=== PATIENT | female | born 1950 | race African-American/Black ===

== ENCOUNTER 2016-11-10 11:35 | Inpatient (IN) | payer OTHER ==
[~2016-11-10] VITALS: Ht 165.1 cm; Wt 156.1 kg
--- NOTE | ~2016-11-10 | HC ---
[facility] [place] [address] CONSULTATION Name: HERNESTO SOLIZ Room #: 219-P ADM IN M.R.#: [id number] Admission: 11/10/16 Attend Phys: Rhona Botello MD Discharge: Date of : 48 Report #: [id number] THIS REPORT FOR: //name// CC: Elias Botello CARDIOLOGY CONSULTATION HISTORY OF PRESENT ILLNESS: The patient is a 66-year-old -[place] female with a long-standing history of obesity and coronary artery disease. I have known the patient for a number of years. She has had some recurrent heart failure issues over the last couple of years, but has been fairly stable recently. She has a history of bypass surgery in approximately 1999. Long-standing hypertension, diabetes, heart failure and morbid obesity. She is still at home with some assistance from the family. Minimal ambulation. She has some dizziness and lightheadedness, which have been kind of chronic. Sometimes, she will have some visual changes. She does note for 3- or 4-week history of slowly increasing weight and edema, relatively mild. She saw Dr. Keita of Nephrology last week, who obtained laboratory work and she states, he increased her Demadex to 40 mg 3 times a day. MEDICATIONS: She also takes carvedilol 25 b.i.d., warfarin, losartan 100, rosuvastatin 40, hydralazine 25 t.i.d., NovoLog, trazodone at night and Lyrica 50 b.i.d. LABORATORY DATA: The laboratory work reveals ikjng-bp-lzjasrf worsening of her renal failure. Potassium was 4.7 and creatinine was 3.1, her baseline has been in the mid ones, I believe, 1.5 to 2.0. Troponin is negative. BNP was 708. H and H 7.6 and 24.4; this is definitely worsened anemia. White count is 7000 and platelets 166,000. U/A was positive for nitrite, some white cells, not clear if this is probably urine; urine culture is pending. CT of the head has no acute process. CT of the chest, mild vascular congestion, some perihilar infiltrates and right hilar appears to be clearing. FAMILY HISTORY: Positive for mother had an infarct around the age 60 and had a pacemaker. SOCIAL HISTORY: She was a prior smoker years ago. No alcohol. She is single. She does have children, who are involved in her care. There was a daughter and granddaughter with her today. ALLERGIES: No known drug allergies. REVIEW OF SYSTEMS: Essentially negative, except for stated above, fatigue and shortness of breath, so this has been noted. PHYSICAL EXAMINATION: [facility] [address] [place] [address] CONSULTATION Name: HERNESTO SOLIZ Room #: 219-P ADM IN M.R.#: [id number] Admission: 11/10/16 Attend Phys: Rhona Botello MD Discharge: Date of : 48 Report #: [id number] GENERAL: She is in no distress and frankly not qualifying for oxygen right now. VITAL SIGNS: Blood pressure 150/54 and pulse 70. HEENT: Eyes reveal xanthelasmas. Pharynx is clear. NECK: Shows preserved upstrokes, without JVD or bruits. LUNGS: Clear anteriorly. They are diminished in the bases. CARDIAC EXAMINATION: Distant S1, S2, without significant murmur or gallop. ABDOMEN: Soft, obese and nontender. EXTREMITIES: Reveal 1+ edema. She is tender. I cannot palpate the distal pulses. NEUROLOGIC: Nonfocal. SKIN: Warm and dry, without xanthoma or ulcer. MUSCULOSKELETAL: Valgus deformity of the knees, general arthritic changes. I did not ambulate her. ASSESSMENT: 1. Progressive dyspnea, shortness of breath and nwanw-br-absamsr heart failure. This would be more the diastolic component with history of left ventricular hypertrophy. 2. Hypertension. 3. Diabetes. 4. Hypercholesterolemia. 5. Possible infiltrative infectious etiology here. 6. Morbid obesity. 7. Seceb-pz-npobvyn renal insufficiency with marked worsening of the renal function. RECOMMENDATIONS AND PLAN: I would hold her ARB right now, atorvastatin and would continue carvedilol. Antibiotics have been initiated. It is not clear to me, we may have even pushed her toward the dry side, although her weight is up. Nephrology has been following her more recent. I will ask them to see her in the morning. We will repeat her echo Doppler, although I do not expect significant change. There was LVH with diastolic dysfunction and some valvular insufficiency a year ago. Daily weights, some relative fluid and sodium restriction and holding on the ARB currently. We will utilize hydralazine for blood pressure and carvedilol. Continue with anticoagulation. We will follow with you. Thank you for asking us to assist in the care of this patient. <ELECTRONICALLY SIGNED> By: Nikita Webb MD, FACC 11/11/16 1646 [id number] Nikita Webb MD, FACC /nt
--- NOTE | ~2016-11-10 | EKG ---
[place] [address] 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 : 1950 Requested By: Lashonda Kruger Order Number: [id number] MD: Juan aMrtinez Measurements Intervals [place] Rate: 65 P: 10 [place]: 127 QRS: 8 QRSD: 165 T: 34 QT: 437 QTc: 455 Interpretive Statements Sinus rhythm Right bundle branch block Compared to ECG 04/11/2016 06:45:43 Ventricular premature complex(es) no longer present Electronically Signed On 11-11-2016 8:35:50 CDT by Juan Martinez [email or web address] <ELECTRONICALLY SIGNED> By: Juan Martinez MD, [facility] 11/11/16 0835 1215 121 Juan Martinez MD, [facility] /EPI
--- NOTE | ~2016-11-10 | 2DMMODE ---
[facility] [place] [place] [address] [place] [address] 2 D/M-MODE ECHOCARDIOGRAM Name: HERNESTO SOLIZ Room #: 219-P ADM IN M.R.#: [id number] Admission: 11/10/16 Attend Phys: Rhona Botello MD Discharge: Date of : 48 Date of Service: 11/11/16 1155 Report #: [id number] THIS REPORT FOR: //name// APPROVED REPORT Study performed: 11/11/2016 11:11:13 EXAM: Comprehensive 2D, Doppler, and color-flow Echocardiogram Patient Location: Bedside Room #: 219 Status: routine BSA: 2.49 HR: 68 bpm BP: 148/51 mmHg Other Information Study Quality: Adequate Indications Diabetes Dyspnea CAD Chest Pain Hypertension/HDD 2D Dimensions LVEF(%): 64.08 (>50%) IVSd: 13.12 (7-11mm) LVOT Diam: 23.72 (18-24mm) LVDd: 56.49 mm PWd: 12.91 (7-11mm) Ascending Ao: 28.34 (22-36mm) LVDs: 36.52 (25-40mm) Aortic Root: 28.39 mm IVC: 15.00 mm Soto's LVEF: 64.08 % Volumes Left Atrial Volume (Systole) Single Plane 4CH: 67.53 mL Single Plane 2CH: 63.26 mL LA ESV Index: 30.00 mL/m2 Aortic Valve AoV Peak Nikhil.: 1.57 m/s AO Peak Gr.: 9.86 mmHg LVOT Max P.06 mmHg LVOT Max V: 1.01 m/s OWEN Vmax: 2.[address] [facility] [place] [place] [address] [place] [address] 2 D/M-MODE ECHOCARDIOGRAM Name: HERNESTO SOLIZ Room #: 219-P [facility] IN [facility].#: [id number] Admission: 11/10/16 Attend Phys: Rhona Botlelo MD Discharge: Date of : 48 Date of Service: 11/11/16 1155 Report #: [id number] Mitral Valve E/A Ratio: 1.3 MV Decel. Time: 208.06 ms MV E Max Nikhil.: 1.41 m/s MV A Nikhil.: 1.10 m/s MV PHT: 60.34 ms IVRT: 64.59 ms Pulmonary Valve PV Peak Nikhil.: 1.03 m/s PV Peak Gr.: 4.27 mmHg Pulmonary Vein P Vein S: 0.59 m/s P Vein A: 0.21 m/s P Vein D: 0.40 m/s P Vein A Dur.: 120.0 msec P Vein S/D Ratio: 1.48 Tricuspid Valve TR Peak Nikhil.: 2.89 m/s TR Peak Gr.: 33.37 mmHg PA Pressure: 38.00 mmHg Left Ventricle The left ventricle is normal size. Mild concentric left ventricular hypertrophy. The left ventricular systolic function is normal. The left ventricular ejection fraction is within the normal range. LVEF is 60-65%. Grade II - pseudonormal filling dynamics. Right Ventricle The right ventricle is normal size. The right ventricular systolic function is normal. Atria The left atrium size is normal. Right atrium is not well visualized but appears mildly dilated. Aortic Valve The aortic valve is normal in structure. Aortic valve is calcified. No aortic regurgitation is present. There is no aortic valvular stenosis. Mitral Valve The mitral valve is normal in structure. Mild mitral regurgitation. No evidence of mitral valve stenosis. Tricuspid Valve The tricuspid valve is normal in structure. There is mild tricuspid [address] [address] 2 D/M-MODE ECHOCARDIOGRAM Name: HERNESTO SOLIZ Room #: 219-P [facility] IN .R.#: [id number] Admission: 11/10/16 Attend Phys: Rhona Botello MD Discharge: Date of : 48 Date of Service: 11/11/16 1155 Report #: [id number] regurgitation. There is mild pulmonary hypertension. Pulmonic Valve The pulmonary valve is normal in structure. Trace pulmonic regurgitation. Great Vessels The aortic root is normal in size. IVC is normal in size and collapses >50% with inspiration. Pericardium There is no pericardial effusion. <Conclusion> The left ventricle is normal size. Mild concentric left ventricular hypertrophy. LVEF is 60-65%. Grade II - pseudonormal filling dynamics. The right ventricle is normal size. The left atrium size is normal. Right atrium is not well visualized but appears mildly dilated. The aortic valve is normal in structure. Aortic valve is calcified. There is no aortic valvular stenosis. Mild mitral regurgitation. There is mild tricuspid regurgitation. There is mild pulmonary hypertension. There is no pericardial effusion. <ELECTRONICALLY SIGNED> By: Juan Martinez MD, FACC 11/11/16 1155 1155 1155 Juan Martinez MD, FACC /INF
--- NOTE | ~2016-11-10 | HC ---
[facility] [place] [address] CONSULTATION Name: HERNESTO SOLIZ Room #: 219-P [facility] IN M.R.#: [id number] Admission: 11/10/16 Attend Phys: Rhona Botello MD Discharge: 11/13/16 Date of : 48 Report #: [id number] THIS REPORT FOR: //name// CC: Elias Botello DATE OF SERVICE: 11/11/2016 REASON FOR CONSULTATION: Chronic kidney disease. REASON FOR PRESENTATION: Weakness, dizziness, lightheadedness. HISTORY OF PRESENT ILLNESS: The patient is a 66-year-old who is well known to me. She is known to have chronic kidney disease with baseline creatinine of around 2.5. She has long-standing diabetes mellitus, hypertension, coronary artery disease status post bypass in 1999. She is also known to have DVTs and PEs. She suffers from morbid obesity with chronic lower extremity edema. I evaluated her in the clinic a week ago for a creatinine of 2.4. She did have some edema. I increased the dose of her torsemide to 40 mg 3 times a day. She did lose some weight; however, she started to have some dizziness and some lightheadedness. There was no associated chest pain or shortness of breath. She did report occasional lower abdominal pain. She presented to the emergency room for further evaluation and management. Creatinine on presentation was up to 3.1. PAST MEDICAL HISTORY: 1. Chronic kidney disease stage 4. 2. Hypertension. 3. Diabetes mellitus. 4. Status post coronary artery bypass graft. 5. Cardiomegaly. 6. Morbid obesity. 7. PE. SOCIAL HISTORY: No drug or alcohol abuse. She stays with her daughter. FAMILY HISTORY: Significant for pancreatic cancer. MEDICATIONS: 1. Losartan. 2. Carvedilol. 3. Hydralazine. 4. Warfarin. 5. Torsemide. REVIEW OF SYSTEMS: [facility] [address] [place] [address] CONSULTATION Name: HERNESTO SOLIZ Room #: 219-P DIS IN [facility].#: [id number] Admission: 11/10/16 Attend Phys: Rhona Botello MD Discharge: 11/13/16 Date of : 48 Report #: [id number] GENERAL: No fever or chills, but significant for weakness and dizziness. CARDIOVASCULAR: No chest pain or palpitation. PULMONARY: No cough or hemoptysis. GASTROINTESTINAL: Upper abdominal pain, but no nausea or vomiting. GENITOURINARY: No frequency, no urgency. PHYSICAL EXAMINATION: GENERAL: The patient was alert, oriented, in no apparent distress. VITAL SIGNS: Blood pressure on evaluation was 155/74, pulse rate 78. She was afebrile. HEAD AND NECK: No jugular venous distention, no bruit, no thyromegaly. CHEST: Clear to auscultation bilaterally. CARDIOVASCULAR: Regular with no rub detected, distant S1 and S2. ABDOMEN: Soft with slight tenderness in the right upper quadrant area. LOWER EXTREMITIES: Edema is actually resolved. LABORATORY DATA: Laboratory values reviewed. Hemoglobin is down to 7.1. Creatinine is actually down to 2.6. Potassium is 4. Sodium is 138. ASSESSMENT, IMPRESSION AND PLAN: 1. Acute kidney injury 2. Chronic kidney disease. 3. Anemia. 4. Urinary tract infection. 5. Coronary artery disease. 6. From the renal perspective, her edema had essentially actually resolved. I will keep off the torsemide for now. Blood pressure seems to be okay; however, she needs to be back on her losartan. She is currently maintained on carvedilol. 7. Continue with the same dose of Coumadin for her PE. Part of her edema is due to chronic venous stasis changes and this is not going to resolve. She is being treated for urinary tract infection. I will transfuse her with couple of units of packed red blood cells given her symptoms or dizziness and lightheadedness. I will decide when to start back her losartan and torsemide when deemed suitable. <ELECTRONICALLY SIGNED> By: Tiffanie Keita MD 11/20/16 1000 0935 1242 Tiffanie Keita MD /nt
[2016-11-10 11:35] VITALS: BP 134/75
[~2016-11-10 11:35] MED LIST: ADULT LOW DOSE81 MG PO; ALDACTONE25 MG PO; ALLOPURINOL 30300 M2 PO; ALLOPURINOL 30300 M3; AMLODIPINE BESY10 MG PO; AMLODIPINE PO; AMOXICILLIN 50500 MG PO; ASPIRIN EC325 M1 PO; ASPIRIN325 PO; ATENOLOL 100MG100 M2 PO; AVAPRO300 MG PO; BYSTOLIC 5 MG5 M1 PO; BYSTOLIC10 MG PO; BYSTOLIC20 MG PO; CARVEDILOL25 MG PO; CEFTIN500 MG PO; CHLORTHALIDONE25 MG; CHLORTHALIDONE25 MG PO; CIPRO250 M1 PO; COLACE100 MG PO; COLCRYS 0.6 MG0.6 MG PO; COUMADIN7.5 MG PO; COZAAR 25 MG TA25 M1 PO; COZAAR 50 MG TA50 M2 PO; CRESTOR10 MG PO; CRESTOR40 MG PO; CYCLOBENZAPRINE10 MG PO; DEMADEX20 MG PO; FERRO-TIME325 MG PO; FISH OIL 1,0001 EAC9 PO; FISHOIL PO; GLUCOPHAGE1000 MG PO; HYDRALAZINE 2525 MG PO; HYDRALAZINE PO; INDOMETHACIN 5050 MG; IPRAT-ALBUT 0.5-3 ML IH; IRON325 PO; LANTUS SC; LANTUS SUBQ; LASIX 40 MG TAB40 M1 PO; LASIX 40 MG TAB40 M2 PO; LEVEMIR SUBQ; LISINOPRIL40 MG; LISINOPRIL40 MG PO; LYRICA 50 MG50 MG PO; MEDROL DOSPAK21 TAB PO; MIRALAX17 GM PO; NEURONTIN 300300 M1 PO; NORCO 5-325 TA1 EACH PO; NORTRIPTYLINE H25 M3 PO; NORVASC10 MG PO; NOVOLOG100 UNIT/1 SQ; OMEPRAZOLE20 M2 PO; PERCOCET PO; PROBENECID500 MG PO; PROTONIX40 M1 PO; SIMVASTATIN80 MG PO; TOPROL XL50 MG PO; TORSEMIDE20 MG PO; TRAMADOL 50 MG50 MG; ULTRA-LIGHT RO1 EACH MC; VALIUM5 MG PO; VALTURNA 300-31 EACH PO; ZESTRIL40 MG PO; ZOFRAN ODT4 MG PO
[2016-11-10 12:09] LABS: ABSOLUTE NEUTROPHILS 5.1 thou/uL (1.4-8.2); EOSINOPHILS 1.3 % (0.0-3.0); HEMATOCRIT 24.4 % (37.0-47.0); HEMOGLOBIN 7.6 gm/dL (12.0-15.0); LYMPHOCYTES 15.5 % (24.0-44.0); MCH 23.8 pg (26.0-34.0); MCHC 31.3 g/dL (28.0-37.0); MONOCYTES 10.1 % (1.0-8.0); PLATELET COUNT 166 thou/uL (150-400); POLYS 72.1 % (36.0-66.0); RBC 3.21 mil/uL (4.20-5.00); RDW 16.7 % (10.5-14.5); WBC 7.1 thou/uL (4.0-11.0)
[2016-11-10 12:10] LABS: MANUAL DIFF NO
[2016-11-10 12:14] LABS: ANION GAP 8 mmol/L (7-16); BUN 108 mg/dL (7-18); CALCIUM 8.7 mg/dL (8.5-10.1); CHLORIDE 103 mmol/L (98-107); CO2 27 mmol/L (21-32); CREATININE 3.1 mg/dL (0.6-1.0); GLUCOSE 52 mg/dL (74-106); POTASSIUM 4.7 mmol/L (3.5-5.1); SODIUM 138 mmol/L (136-145)
[2016-11-10 12:23] LABS: APTT 35.6 Seconds (24.5-32.8); INR 2.3; TROPONIN-I < 0.04 ng/mL (<0.04-0.07)
[2016-11-10 13:50] LABS: URINE BILIRUBIN NEGATIVE (Negative); URINE BLOOD NEGATIVE (Negative); URINE COLOR YELLOW; URINE GLUCOSE-RANDOM* NEGATIVE (Negative); URINE KETONES NEGATIVE (Negative); URINE PROTEIN (DIPSTICK) NEGATIVE (Negative); URINE SPECIFIC GRAVITY <= 1.005 (1.003-1.035); URINE UROBILINOGEN 0.2 E.U./dl (0.2-1.0)
[2016-11-10 13:52] LABS: URINE LEUKOCYTES-REFLEX 1+ (Negative)
[2016-11-10 14:21] LABS: SQUAMOUS 4-10 Moderate /LPF (0-3)
[2016-11-10 14:22] LABS: CRYSTALS None Seen /LPF (None Seen)
[2016-11-10 14:23] LABS: HYALINE CASTS 0-3 Few /LPF (None Seen)
[2016-11-10 14:24] LABS: URINE RBC None Seen /HPF (0-2); URINE WBC-REFLEX 6-15 Few /HPF (0-5)
[2016-11-10 15:16] VITALS: BP 195/46
[2016-11-10 15:37] VITALS: BP 150/49
[2016-11-10] MEDS ORDERED: COUMADIN 2 MG TA2 M1 PO (18:27)
[2016-11-10] MEDS ORDERED: TRAZODONE HCL50 MG PO (18:28)
[2016-11-10] MEDS ORDERED: NOVOLOG100 UNIT/1 SUBQ (18:29)
[2016-11-10] MEDS ORDERED: ALDACTONE25 MG PO (18:30)
[2016-11-10] MEDS ORDERED: DEMADEX20 MG PO (18:31)
[2016-11-10 19:11] VITALS: BP 151/53
[2016-11-10] MEDS ORDERED: TRESIBA FL100 UNIT/1 SUBQ (20:17)
[2016-11-11] VITALS (9 sets, daily range): BP systolic 128–155; BP diastolic 33–56
[2016-11-11 04:37] LABS: ABSOLUTE NEUTROPHILS 4.5 thou/uL (1.4-8.2); BASOPHILS 0.8 % (0.0-2.0); EOSINOPHILS 1.8 % (0.0-3.0); HEMATOCRIT 22.3 % (37.0-47.0); HEMOGLOBIN 7.1 gm/dL (12.0-15.0); LYMPHOCYTES 19.6 % (24.0-44.0); MCHC 31.6 g/dL (28.0-37.0); MCV 75.8 fL (80.0-100.0); MONOCYTES 11.1 % (1.0-8.0); PLATELET COUNT 143 thou/uL (150-400); POLYS 66.7 % (36.0-66.0); RBC 2.94 mil/uL (4.20-5.00); RDW 17.1 % (10.5-14.5); WBC 6.7 thou/uL (4.0-11.0)
[2016-11-11 04:40] LABS: MANUAL DIFF NO
[2016-11-11 04:48] LABS: CALCIUM 8.7 mg/dL (8.5-10.1); CREATININE 2.6 mg/dL (0.6-1.0)
[2016-11-11 10:16] LABS: % SATURATION 15 % (20-39); IRON 32 ug/dL (50-170); TIBC 208 ug/dL (250-450); UIBC 176 ug/dL
[2016-11-11 10:43] LABS: FOLIC ACID 12.7 ng/mL (8.6-58.9)
[2016-11-12 03:21] VITALS: BP 137/23
[2016-11-12 04:33] LABS: ALBUMIN 2.7 g/dL (3.4-5.0); CALCIUM 8.6 mg/dL (8.5-10.1); CREATININE 2.3 mg/dL (0.6-1.0); PHOSPHORUS 3.9 mg/dL (2.5-4.9); POTASSIUM 4.6 mmol/L (3.5-5.1)
[2016-11-12 05:15] LABS: HEMATOCRIT 25.9 % (37.0-47.0); MCH 24.4 pg (26.0-34.0); MCHC 30.9 g/dL (28.0-37.0); MCV 79.1 fL (80.0-100.0); RBC 3.28 mil/uL (4.20-5.00); RDW 17.8 % (10.5-14.5); WBC 6.1 thou/uL (4.0-11.0)
[2016-11-12 07:05] VITALS: BP 127/37
[2016-11-12 12:00] VITALS: BP 120/34
[2016-11-12 15:05] VITALS: BP 142/30
[2016-11-12 17:22] LABS: INR 2.2
[2016-11-12 20:46] VITALS: BP 184/44
[2016-11-12 22:00] VITALS: BP 158/48
[2016-11-13 04:15] LABS: HEMATOCRIT 26.5 % (37.0-47.0); HEMOGLOBIN 8.2 gm/dL (12.0-15.0); MCH 24.2 pg (26.0-34.0); MCV 78.2 fL (80.0-100.0); RBC 3.39 mil/uL (4.20-5.00); RDW 17.6 % (10.5-14.5); WBC 7.2 thou/uL (4.0-11.0)
[2016-11-13 04:32] LABS: ALBUMIN 2.9 g/dL (3.4-5.0); CALCIUM 9.1 mg/dL (8.5-10.1); CREATININE 2.2 mg/dL (0.6-1.0); PHOSPHORUS 3.2 mg/dL (2.5-4.9); POTASSIUM 4.1 mmol/L (3.5-5.1)
[2016-11-13 04:37] VITALS: BP 139/52
[2016-11-13 08:13] VITALS: BP 128/27
[2016-11-13] MEDS ORDERED: CEFUROXIME250 MG PO (13:50)
[2016-11-13 13:54] VITALS: BP 159/40
[2016-11-13 15:27] VITALS: BP 159/40
== END 2016-11-13 16:00 | disposition home health service (06) | DRG 377 ==
LOC: ER 11:35 → EROBS 14:42 → 2N 14:42
PROVIDERS: Emergency Medicine; Hospitalist; Internal Medicine; Internal Medicine Cardiovascular Disease; Internal Medicine Endocrinology, Diabetes & Metabolism; Specialist
PROC: 30233N1 Transfusion of Nonautologous Red Blood Cells into Peripheral Vein, Percutaneous Approach (ICD-10-PCS; principal; 2016-11-11)
DX: K92.2 Gastrointestinal hemorrhage, unspecified (principal); I50.43 Acute on chronic combined systolic (congestive) and diastolic (congestive) heart failure; N17.9 Acute kidney failure, unspecified; N39.0 Urinary tract infection, site not specified; I13.0 Hypertensive heart and chronic kidney disease with heart failure and stage 1 through stage 4 chronic kidney disease, or unspecified chronic kidney disease; N18.4 Chronic kidney disease, stage 4 (severe); D62 Acute posthemorrhagic anemia; Z68.43 Body mass index [BMI] 50.0-59.9, adult; I11.0 Hypertensive heart disease with heart failure; E11.9 Type 2 diabetes mellitus without complications; E78.00 Pure hypercholesterolemia, unspecified; D64.9 Anemia, unspecified; E66.01 Morbid (severe) obesity due to excess calories; K59.00 Constipation, unspecified; I25.10 Atherosclerotic heart disease of native coronary artery without angina pectoris; I48.0 Paroxysmal atrial fibrillation; Z86.010 Personal history of colon polyps; Z87.11 Personal history of peptic ulcer disease; Z95.1 Presence of aortocoronary bypass graft; Z86.711 Personal history of pulmonary embolism; Z87.891 Personal history of nicotine dependence; Z91.048 Other nonmedicinal substance allergy status; Z79.4 Long term (current) use of insulin; Z79.01 Long term (current) use of anticoagulants; Z79.899 Other long term (current) drug therapy; Z86.718 Personal history of other venous thrombosis and embolism; Z82.49 Family history of ischemic heart disease and other diseases of the circulatory system; Z82.3 Family history of stroke
CPT/HCPCS: 10081

== ENCOUNTER → 2016-11-14 | Outpatient (CLI) | payer OTHER ==
[~2016-11-14] MED LIST changes: +CEFUROXIME250 MG PO; +COUMADIN 2 MG TA2 M1 PO; +NOVOLOG100 UNIT/1 SUBQ; +TRAZODONE HCL50 MG PO; +TRESIBA FL100 UNIT/1 SUBQ
== END | disposition home or self-care (01) ==
LOC: GI 07:06
DX: D64.9 Anemia, unspecified (principal)

== ENCOUNTER 2017-04-07 18:17 | Emergency (ER) | payer OTHER ==
[~2017-04-07] VITALS: Ht 165.1 cm; Wt 169.2 kg
--- NOTE | ~2017-04-07 | EKG ---
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 : 1950 Requested By: Huma Jaquez Order Number: [id number] MD: Juan Martinze Measurements Intervals [place] Rate: 67 P: 25 [place]: 167 QRS: -22 QRSD: 165 T: 35 QT: 443 QTc: 468 Interpretive Statements Sinus rhythm Right bundle branch block Compared to ECG 11/10/2016 12:15:47 No significant changes Electronically Signed On 04-08-2017 8:10:08 RETAIL SALES ASSISTANT by Juan Martinez [email or web address] <ELECTRONICALLY SIGNED> By: Juan Martinez MD, [facility] 04/08/17 0810 [facility] Juan Martinez MD, FACC /EPI
[2017-04-07 19:35] LABS: ABSOLUTE NEUTROPHILS 6.1 thou/uL (1.4-8.2); BASOPHILS 0.4 % (0.0-2.0); HEMATOCRIT 29.4 % (37.0-47.0); HEMOGLOBIN 9.4 gm/dL (12.0-15.0); LYMPHOCYTES 14.9 % (24.0-44.0); MCH 25.7 pg (26.0-34.0); MCHC 31.9 g/dL (28.0-37.0); MCV 80.7 fL (80.0-100.0); MONOCYTES 8.5 % (1.0-8.0); PLATELET COUNT 159 thou/uL (150-400); POLYS 74.2 % (36.0-66.0); RBC 3.64 mil/uL (4.20-5.00); RDW 17.2 % (10.5-14.5); WBC 8.2 thou/uL (4.0-11.0)
[2017-04-07 19:39] LABS: CALCIUM 9.3 mg/dL (8.5-10.1); CREATININE 1.8 mg/dL (0.6-1.0)
[2017-04-07] MEDS ORDERED: ALBUTEROL2.5 MG/31 INH (19:39)
[2017-04-07] MEDS ORDERED: TORSEMIDE20 MG PO (19:40)
[2017-04-07] MEDS ORDERED: COZAAR 50 MG TA50 M2 PO (19:40)
[2017-04-07] MEDS ORDERED: DEMADEX20 MG PO (19:40)
[2017-04-07] MEDS ORDERED: VITAMIN D250000 UNIT PO (19:41)
[2017-04-07] MEDS ORDERED: KETOCONAZOLE15 GM TOP (19:42)
[2017-04-07 19:46] LABS: INR 1.1; PROTIME 11.2 Seconds (9.3-11.4)
[2017-04-07 19:48] LABS: MAGNESIUM 2.4 mg/dL (1.8-2.4); TOTAL BILIRUBIN 0.3 mg/dL (<0.1-1.0); TOTAL PROTEIN 7.8 g/dL (6.4-8.2); TROPONIN-I 0.05 ng/mL (<0.06)
[2017-04-07 20:30] VITALS: BP 155/56
== END 2017-04-07 21:20 | disposition home or self-care (01) ==
LOC: ER 18:17
PROVIDERS: Physician Assistant
DX: R06.01 Orthopnea (principal); R60.0 Localized edema; I11.0 Hypertensive heart disease with heart failure; I50.9 Heart failure, unspecified; M19.90 Unspecified osteoarthritis, unspecified site; E11.9 Type 2 diabetes mellitus without complications; E78.00 Pure hypercholesterolemia, unspecified; Z95.1 Presence of aortocoronary bypass graft; Z87.891 Personal history of nicotine dependence

== ENCOUNTER 2017-07-16 16:22 | Emergency (ER) | payer OTHER ==
[~2017-07-16] VITALS: Ht 165.1 cm; Wt 164.7 kg
--- NOTE | ~2017-07-16 | EKG ---
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
[~2017-07-16 16:22] MED LIST changes: +ALBUTEROL2.5 MG/31 INH; +KETOCONAZOLE15 GM TOP; +VITAMIN D250000 UNIT PO
[2017-07-16 17:31] LABS: BASOPHILS 0.5 % (0.0-2.0); EOSINOPHILS 1.9 % (0.0-3.0); HEMATOCRIT 34.7 % (37.0-47.0); HEMOGLOBIN 10.8 gm/dL (12.0-15.0); LYMPHOCYTES 14.9 % (24.0-44.0); MCH 25.2 pg (26.0-34.0); MONOCYTES 10.3 % (1.0-8.0); PLATELET COUNT 146 thou/uL (150-400); POLYS 72.4 % (36.0-66.0); RBC 4.29 mil/uL (4.20-5.00); RDW 16.8 % (10.5-14.5); WBC 9.6 thou/uL (4.0-11.0)
[2017-07-16 17:40] LABS: CALCIUM 8.8 mg/dL (8.5-10.1); CREATININE 1.8 mg/dL (0.6-1.0); POTASSIUM 3.7 mmol/L (3.5-5.1)
[2017-07-16 17:46] LABS: ALBUMIN 2.8 g/dL (3.4-5.0); TOTAL BILIRUBIN 0.4 mg/dL (<0.1-1.0); TOTAL PROTEIN 7.6 g/dL (6.4-8.2)
[2017-07-16] MEDS ORDERED: PROAIR HFA8.5 GM INH (18:38)
[2017-07-16] MEDS ORDERED: TESSALON PERLE100 MG PO (18:38)
[2017-07-16] MEDS ORDERED: ZPAK PO (18:38)
== END 2017-07-16 19:03 | disposition home or self-care (01) ==
LOC: ER 16:22
PROVIDERS: Emergency Medicine
DX: R05 Cough (principal); R06.02 Shortness of breath; R09.81 Nasal congestion; M19.90 Unspecified osteoarthritis, unspecified site; E11.9 Type 2 diabetes mellitus without complications; E78.00 Pure hypercholesterolemia, unspecified; I11.0 Hypertensive heart disease with heart failure; I50.9 Heart failure, unspecified; Z87.891 Personal history of nicotine dependence

== ENCOUNTER 2017-10-07 22:00 | Inpatient (IN) | payer OTHER ==
[~2017-10-07] VITALS: Ht 165.1 cm; Wt 166.7 kg
--- NOTE | ~2017-10-07 | EKG ---
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 10/08/17 0739 37 Juan Martinez MD, [facility] /EPI
[~2017-10-07 22:00] MED LIST changes: +PROAIR HFA8.5 GM INH; +TESSALON PERLE100 MG PO; +ZPAK PO
[2017-10-07 22:08] VITALS: BP 172/41
[2017-10-07] MEDS ORDERED: GENERLAC10 GM/15 M PO (22:18)
[2017-10-07 22:59] LABS: HEMATOCRIT 28.8 % (37.0-47.0); HEMOGLOBIN 9.1 gm/dL (12.0-15.0); MCH 25.3 pg (26.0-34.0); MCHC 31.8 g/dL (28.0-37.0); MCV 79.4 fL (80.0-100.0); PLATELET COUNT 164 thou/uL (150-400); RBC 3.62 mil/uL (4.20-5.00); RDW 15.9 % (10.5-14.5); WBC 19.6 thou/uL (4.0-11.0)
[2017-10-07 23:12] LABS: CREATININE 2.7 mg/dL (0.6-1.0); POTASSIUM 3.6 mmol/L (3.5-5.1)
[2017-10-07 23:21] LABS: ALBUMIN 2.4 g/dL (3.4-5.0); TOTAL PROTEIN 7.3 g/dL (6.4-8.2); TROPONIN-I 0.07 ng/mL (<0.06)
[2017-10-07 23:40] LABS: ABSOLUTE NEUTROPHILS 16.7 thou/uL (1.4-8.2); LARGE PLATELETS RARE
[2017-10-08] VITALS (8 sets, daily range): BP systolic 144–190; BP diastolic 26–58
[2017-10-08 05:47] LABS: CALCIUM 8.9 mg/dL (8.5-10.1); CREATININE 2.8 mg/dL (0.6-1.0); POTASSIUM 3.9 mmol/L (3.5-5.1); TROPONIN-I 0.08 ng/mL (<0.06)
[2017-10-08 05:51] LABS: HEMOGLOBIN 9.1 gm/dL (12.0-15.0); MCH 25.4 pg (26.0-34.0); MCHC 31.5 g/dL (28.0-37.0); MCV 80.6 fL (80.0-100.0); RBC 3.59 mil/uL (4.20-5.00); RDW 15.6 % (10.5-14.5); WBC 16.9 thou/uL (4.0-11.0)
[2017-10-08 06:04] LABS: URINE BILIRUBIN NEGATIVE (Negative); URINE BLOOD TRACE (Negative); URINE CLARITY CLEAR; URINE COLOR YELLOW; URINE GLUCOSE-RANDOM* NEGATIVE (Negative); URINE KETONES NEGATIVE (Negative); URINE LEUKOCYTES-REFLEX NEGATIVE (Negative); URINE NITRITE-REFLEX POSITIVE (Negative); URINE PROTEIN (DIPSTICK) 3+ (Negative); URINE UROBILINOGEN 0.2 E.U./dl (0.2-1.0)
[2017-10-08 06:25] LABS: SQUAMOUS >10 Many /LPF (0-3)
[2017-10-08 06:27] LABS: BACTERIA-REFLEX >30 Many /HPF (None Seen); HYALINE CASTS 0-3 Few /LPF (None Seen); MUCUS 0-3 Light strn/LPF (None Seen); URINE RBC 0-2 Rare /HPF (0-2); URINE WBC-REFLEX 0-5 Rare /HPF (0-5)
[2017-10-08 06:28] LABS: CRYSTALS None Seen /LPF (None Seen)
[2017-10-09 05:37] LABS: HEMATOCRIT 28.1 % (37.0-47.0); HEMOGLOBIN 8.7 gm/dL (12.0-15.0); MCHC 30.8 g/dL (28.0-37.0); MCV 81.2 fL (80.0-100.0); PLATELET COUNT 173 thou/uL (150-400); RBC 3.46 mil/uL (4.20-5.00); RDW 16.1 % (10.5-14.5); WBC 24.8 thou/uL (4.0-11.0)
[2017-10-09 05:40] LABS: APTT 30.3 Seconds (24.5-32.8); INR 1.2; PROTIME 12.4 Seconds (9.3-11.4)
[2017-10-09 05:54] LABS: ALBUMIN 2.1 g/dL (3.4-5.0); CALCIUM 8.1 mg/dL (8.5-10.1); POTASSIUM 4.2 mmol/L (3.5-5.1); TOTAL BILIRUBIN 1.2 mg/dL (<0.1-1.0)
[2017-10-09 06:03] LABS: CREATININE 4.5 mg/dL (0.6-1.0)
[2017-10-09 06:08] VITALS: BP 127/88
[2017-10-09 09:48] LABS: ABSOLUTE NEUTROPHILS 22.3 thou/uL (1.4-8.2); PLATELET ESTIMATE NORMAL
[2017-10-09 09:49] LABS: LARGE PLATELETS FEW
[2017-10-09 16:13] VITALS: BP 145/58
[2017-10-09 20:08] VITALS: BP 131/42
[2017-10-10 04:46] VITALS: BP 111/35
[2017-10-10 06:08] LABS: HEMATOCRIT 27.3 % (37.0-47.0); HEMOGLOBIN 8.5 gm/dL (12.0-15.0); MCH 25.5 pg (26.0-34.0); MCHC 31.1 g/dL (28.0-37.0); MCV 82.1 fL (80.0-100.0); PLATELET COUNT 191 thou/uL (150-400); RBC 3.33 mil/uL (4.20-5.00); RDW 16.3 % (10.5-14.5); WBC 28.2 thou/uL (4.0-11.0)
[2017-10-10 06:10] LABS: ALBUMIN 1.9 g/dL (3.4-5.0); CALCIUM 7.9 mg/dL (8.5-10.1); MAGNESIUM 2.5 mg/dL (1.8-2.4); PHOSPHORUS 7.5 mg/dL (2.5-4.9)
[2017-10-10 06:13] LABS: CREATININE 6.5 mg/dL (0.6-1.0)
[2017-10-10 07:06] LABS: ABSOLUTE NEUTROPHILS 25.7 thou/uL (1.4-8.2); ANISOCYTOSIS 1+; METAMYELOCYTES 1 %; POLYCHROMASIA OCCASIONAL
== END 2017-10-10 07:30 | disposition short-term general hospital (02) | DRG 871 ==
LOC: ER 22:00 → EROBS 10-08 01:00 → 4W 10-08 01:00
PROVIDERS: Hospitalist; Nurse Practitioner Family; Physician Assistant; Surgery
DX: A41.9 Sepsis, unspecified organism (principal); E43 Unspecified severe protein-calorie malnutrition; K81.0 Acute cholecystitis; N17.9 Acute kidney failure, unspecified; E87.1 Hypo-osmolality and hyponatremia; I13.0 Hypertensive heart and chronic kidney disease with heart failure and stage 1 through stage 4 chronic kidney disease, or unspecified chronic kidney disease; Z68.44 Body mass index [BMI] 60.0-69.9, adult; E11.22 Type 2 diabetes mellitus with diabetic chronic kidney disease; N18.9 Chronic kidney disease, unspecified; I50.9 Heart failure, unspecified; I25.10 Atherosclerotic heart disease of native coronary artery without angina pectoris; E78.5 Hyperlipidemia, unspecified; M62.84 Sarcopenia; E66.9 Obesity, unspecified; R33.9 Retention of urine, unspecified; M19.91 Primary osteoarthritis, unspecified site; Z95.1 Presence of aortocoronary bypass graft; Z79.4 Long term (current) use of insulin; Z86.711 Personal history of pulmonary embolism; Z87.891 Personal history of nicotine dependence; Z79.899 Other long term (current) drug therapy
CPT/HCPCS: 10040